=== PATIENT | female | born 2005 | race Caucasian/White ===

== ENCOUNTER 2023-10-25 15:53 | Emergency (ER) | payer OTHER, SELFPAY ==
[2023-10-25 16:09] VITALS: BP 153/93
[2023-10-25 16:25] LABS: % Basophils 0.3 % (0-2); % Eosinophils 0.1 % (0-6); % Immature Granulocytes 0.4 % (0-0.5); % Lymphocytes 10.3 % (20.5-51.1); % Monocytes 4.4 % (1.7-9.3); % Neutrophils 84.5 % (42.2-75.2); Absolute Immature Granulocytes 0.1 10^3/uL (0-0.05); Absolute Lymphocytes 1.3 10^3/uL (1.2-3.4); Absolute Monocytes 0.6 10^3/uL (0.1-0.6); Hematocrit 38.5 % (37.0-47.0); Hemoglobin 13.5 g/dL (12.0-16.0); Mean Corp Hgb Conc. 35.1 g/dL (33.0-37.0); Mean Corpuscular Hgb 30.7 pg (27.0-31.0); Mean Corpuscular Volume 87.5 fL (81.0-99.0); Mean Platelet Volume 9.1 fL (7.4-10.4); Nucleated Red Blood Cells % 0 %; Platelet Count 471 10^3/uL (130-400); Red Cell Dist. Width 12.6 % (11.5-14.5); White Blood Cell Count 13.1 10^3/uL (4.8-10.8)
[2023-10-25 16:46] LABS: ALT (SGPT) 24 U/L (0-35); AST (SGOT) 30 U/L (14-36); Albumin 5.1 g/dl (3.5-5.0); Alkaline Phosphatase 90 U/L (38-126); Blood Urea Nitrogen 12 mg/dl (7-17); Calcium 9.8 mg/dl (8.4-10.2); Carbon Dioxide 21 mmol/L (22-30); Chloride 106 mmol/L (98-107); Glucose 88 mg/dl (70-99); Lipase 63 U/L (23-300); Potassium 4.4 mmol/L (3.5-5.1); Sodium 139 mmol/L (135-145); Total Bilirubin 0.9 mg/dl (0.2-1.3); Total Protein 8.8 g/dl (6.3-8.2); eGFR > 60.00
[2023-10-25 17:57] LABS: HCG, Serum Qualitative Screen Negative
[2023-10-25 18:03] VITALS: BMI 19.1
[2023-10-25 18:54] LABS: COVID-19 Antigen Negative (Negative)
[2023-10-25 19:11] VITALS: BP 135/81
[2023-10-25] MEDS: NSS 1000 IV (19:12)
[2023-10-25] MEDS: TORADOL 15 MG IV (19:12)
[2023-10-25] MEDS: ZOFRAN 4 MG IV (19:13)
[2023-10-25 20:00] VITALS: BP 132/73
--- NOTE | 2023-10-25 20:27 | ED.GENMED ---
History of Present Illness
General
Chief Complaint: Abdominal Symptoms
Source: patient
Exam Limitations: none
Time Seen by Provider: 10/25/23 18:03
Nursing documentation reviewed up to this point in time: agreed with
Travel History
Have you had any contact with someone who has COVID-19?: No
Do you have any symptoms of coronavirus? Fever > 100 degrees, chills, cough, shortness of breath, sore throat, loss of taste or smell, muscle aches, or headache?: No
History of Present Illness
History of Present Illness:
18-year-old female with no chronic medical issues presents to the emergency room for evaluation of nausea and vomiting. Patient reports she has been ill since early this morning around 3 AM and has been sick all day. She says that she has had
multiple episodes of nonbloody vomiting today. She says she has had generalized bodyaches and malaise. She says she has a mild headache. She says she has chills. She has not had any diarrhea. She says she has some very mild discomfort in the
upper abdomen she thinks she is sore from vomiting. She denies any urinary symptoms. Denies any other complaints.
Review of Systems
Review of Systems
All Other Systems: ROS reviewed and negative except as documented in HPI and ROS
Constitutional: Reports fatigue and chills; Denies fever
EENT: Denies sore throat or runny nose
Respiratory: Denies cough or trouble breathing
Cardiac: Denies chest pain or palpitations
ABD/GI: Reports abdominal pain, nausea and vomiting; Denies diarrhea
: Denies dysuria, frequency or flank pain
Musculoskeletal: Reports muscle pain (Myalgias); Denies neck pain or back pain
Neurological: Reports headache; Denies dizzy, weakness or numbness
Phy Exam
Physical Exam
Physical Exam:
General: Awake, alert, oriented x3; no acute distress
Head: Normocephalic, atraumatic
Eyes: Conjunctiva normal, sclera anicteric
Throat: Airway intact, mucous membranes dry
Neck: Trachea midline, supple without meningismus
Lungs: Clear to auscultation bilaterally, no wheezing, rales, rhonchi
Heart: Regular rate and rhythm, no murmurs, gallops, or rubs
Abd: Soft, non distended, nontender to deep palpation
Neuro: No gross deficit
Skin: Dry, no rash
Extremities: No edema in extremities, warm and well-perfused
Scores
Heart Failure Risk
Heart Failure Risk Score: Not Applicable
Heart Score for Chest Pain Patients
STEMI patient?: Not applicable
Withdrawal Assessment of Alcohol
Withdrawal Assessment Completed?: Not applicable
Course
Orders/Labs/Results
Orders:
Orders
10/25/23 16:11
Test Result ONCE
10/25/23 16:17
Complete Blood Count/With Diff Urgent
Comprehensive Metabolic Panel Urgent
HCG, Serum Qualitative Screen Urgent
Lipase Urgent
10/25/23 18:18
COVID-19 Antigen Urgent
Source: Nasal Swab
Influenza A+B Rapid Molecular Urgent
NEVAEH Source: Nasal Swab
Specimen Description:
10/25/23 18:43
0.9% Sodium Chloride 1000 ml [Nss] 1,000 ml IV BOLUS
Ketorolac [Toradol] 15 mg IV NOW STA
Ondansetron Injectable [Zofran] 4 mg IV NOW STA
Abnormal Lab Results
10/25/23
16:17
WBC 13.1 H 10^3/uL
(4.8-10.8)
Plt Count 471 H 10^3/uL
(130-400)
Abs Immat Gran (auto) 0.1 H 10^3/uL
(0-0.05)
Absolute Neuts (auto) 11.0 H 10^3/uL
(1.4-6.5)
Neutrophils % 84.5 H %
(42.2-75.2)
Lymphocytes % 10.3 L %
(20.5-51.1)
Carbon Dioxide 21 L mmol/L
(22-30)
Total Protein 8.8 H g/dl
(6.3-8.2)
Albumin 5.1 H g/dl
(3.5-5.0)
10/25/23 16:17
10/25/23 16:17
Vital Signs
Initial and Last Documented VS:
Initial Vital Signs
Temp Pulse Resp BP Pulse Ox
36.7 C 82 18 153/93 97
10/25/23 16:09 10/25/23 16:09 10/25/23 16:09 10/25/23 16:09 10/25/23 16:09
Last Documented Vital Signs
Temp Pulse Resp BP Pulse Ox
36.7 C 82 18 132/73 98
10/25/23 16:09 10/25/23 16:09 10/25/23 16:09 10/25/23 20:00 10/25/23 20:15
MDM/Problems Addressed
Differential Diagnosis Includes:
Gastritis, enteritis, viral syndrome, food poisoning
MDM/Problems Addressed:
18-year-old female presents for evaluation of nausea, vomiting, malaise and myalgias with mild headache today. Vital signs are normal. Exam as above�she does appear to be dry but otherwise well-appearing. We sent basic labs including a CBC which
shows some signs of hemoconcentration, CMP which shows no significant electrolyte derangements. Her hCG is negative. Lipase normal. Viral swabs were negative here but I suspect she likely has a viral gastroenteritis based on full clinical
picture. She has no significant abdominal tenderness and nothing there is any indication for abdominal imaging at this point. She was treated with IV fluids, Toradol, Zofran with significant improvement in her symptoms. I think she is stable for
discharge will prescribe Zofran as needed for nausea. She feels comfortable with this plan. Spoke about return precautions all questions answered.
*Pulse Oximetry
Patient hypoxic: no
*Critical Care Note
Total Time (30-74mins, 75-104mins- exclusive of procedures): Not Applicable
Data Reviewed
Source: patient
Further Testing Considered But Not Given:
Considered CT of the abdomen pelvis
ED Attending Note
-
Portions of this chart may have been created with voice recognition software.� Occasional wrong word or��sound alike� substitutions may have occurred due to the inherent limitations of voice recognition software.
Discharge Plan
Departure
Patient Disposition: Home (Routine Discharge)
Date of Disposition: 10/25/23
Time of Disposition: 20:33
Patient with high blood pressure during this ER visit?: Yes
Discharge Problem:
Gastroenteritis, Nausea & vomiting
Instructions: Nausea and Vomiting, Adult (DC), Viral Gastroenteritis, Adult (DC)
Prescriptions:
New
ondansetron 4 mg tablet,disintegrating
4 mg PO TIDPRN PRN (Reason: nausea/vomiting) Qty: 20 0RF
Referrals:
NADIR MORLEY [Other]
Activity Restrictions/Additional Instructions:
Thank you for visiting the Emergency Department at [facility].
1. Please schedule a follow up appointment as directed. Call first thing tomorrow morning to make an appointment.
2. If indicated, please take your medications as instructed and indicated on discharge paperwork.
3. If any of your symptoms do not improve, or persist, or become more severe within 6-12 hours, please return to the emergency department for further care.
4. Please return to the emergency department if you develop a headache, neck pain/stiffness, fever greater than 100.4F, chest pain, shortness of breath, persistent nausea, vomiting, slurred speech, difficulty walking, numbness/tingling, weakness,
signs of infection or any other symptoms that are worrisome to you.
Please call [phone] if you have any questions.
Interventions
Interventions:
*Risk Screen - Suicide Last Done: 10/25/23 18:03
*General Assessment Last Done: 10/25/23 16:09
*Neglect/Abuse Screening Last Done: 10/25/23 18:03
ED- Fall Risk Assessment Last Done: 10/25/23 18:03
*ED COVID-19 Vaccine History Last Done: 10/25/23 16:09
FP-Jqwqre-Uvdtoljsmo Assessment Last Done: 10/25/23 18:03
[2023-10-25 20:58] VITALS: BP 129/76
== END 2023-10-25 21:20 | disposition home or self-care (01) ==
LOC: EMR 15:53
PROVIDERS: EMERGENCY PHYSICIAN Emergency Medicine
DX: K52.9 Noninfective gastroenteritis and colitis, unspecified (principal); R11.2 Nausea with vomiting, unspecified
CPT/HCPCS: 99283; 96374; 96375; 96361; 80053; 83690; 84703; 85025; 87502; 87811